=== PATIENT | female | born 1945 | race Two or more races ===

== ENCOUNTER 2018-12-06 10:47 | Day surgery (SDC) | payer MEDICARE, OTHER ==
[~2018-12-06] VITALS: Ht 147.3 cm; Wt 101.0 kg
[~2018-12-06 10:47] MED LIST: ROCURONIUM 10MG/ML,5ML ONE; SUCCINYLCHOLINE 20 MG/ML, 10ML ONE
[2018-12-06 11:19] VITALS: BP 189/81
[2018-12-06] MEDS ORDERED: LACTATED RINGERS 1,000 ML IV SCH (11:23)
[2018-12-06] MEDS ORDERED: PLEASE ENTER HEIGHT AND WEIGHT MC SCH (12:00)
[2018-12-06] MEDS ORDERED: ROSU40TA PO (12:33)
[2018-12-06] MEDS ORDERED: crestor (12:33)
[2018-12-06] MEDS ORDERED: PARO20TA4 PO (12:33)
[2018-12-06] MEDS ORDERED: DULO20CA45 PO (12:33)
[2018-12-06] MEDS ORDERED: mirtazapine (12:33)
[2018-12-06] MEDS ORDERED: LOSA25TA25 PO (12:33)
[2018-12-06] MEDS ORDERED: biotin (12:33)
[2018-12-06] MEDS ORDERED: MIRT15TA4 PO (12:33)
[2018-12-06] MEDS ORDERED: iron (12:33)
[2018-12-06] MEDS ORDERED: tikosyn (12:33)
[2018-12-06] MEDS ORDERED: DOFE500C4 PO (12:33)
[2018-12-06] MEDS ORDERED: HYDR-3240 PO (12:34)
[2018-12-06 12:50] LABS: BASOPHILS # (AUTO) 0.05 x10^3/uL (0-0.1); BASOPHILS % (AUTO) 1 % (0-1); EOSINOPHILS # (AUTO) 0.27 x10^3/uL (0-0.4); EOSINOPHILS % (AUTO) 3 % (1-7); LYMPHOCYTES # (AUTO) 2.28 x10^3/uL (1-3.4); LYMPHOCYTES % (AUTO) 23 % (22-44); MD NO; MEAN CORPUSCULAR HEMOGLOBIN 24.7 pg (27.0-34.8); MEAN CORPUSCULAR HGB CONC 31.2 g/dL (32.4-35.8); MEAN PLATELET VOLUME 9.8 fL (7.4-10.4); MONOCYTES # (AUTO) 0.48 x10^3/uL (0.2-0.8); MONOCYTES % (AUTO) 5 % (2-9); NEUTROPHILS # (AUTO) 6.96 x10^3/uL (1.8-6.8); NEUTROPHILS % (AUTO) 69 % (42-75); PLATELET COUNT 331 x10^3/uL (130-400); RED BLOOD COUNT 5.75 x10^6/uL (3.82-5.3); RED CELL DISTRIBUTION WIDTH 16.4 % (9.6-15.2)
[2018-12-06 13:02] LABS: ALBUMIN 3.5 g/dL (3.4-5.0); ANION GAP 6 mmol/L (5-15); CALCIUM 9.4 mg/dL (8.5-10.1); CHLORIDE 108 mmol/L (98-107)
[2018-12-06 13:05] LABS: ALANINE AMINOTRANSFERASE 20 U/L (12-78); ALKALINE PHOSPHATASE 88 U/L (45-117); BILIRUBIN,TOTAL 0.5 mg/dL (0.2-1.0); CREATININE 0.76 mg/dL (0.55-1.02)
[2018-12-06] MEDS ORDERED: EPINEPHRINE SYRINGE 0.1 MG/ML, 10ML ONE (13:07)
[2018-12-06] MEDS ORDERED: METHYLENE BLUE 50 MG/10 ML AMP ONE (13:14)
[2018-12-06] MEDS ORDERED: FENTANYL PF 100 MCG/2ML ONE (14:25)
[2018-12-06] MEDS ORDERED: PROPOFOL 10 MG/ML, 20ML ONE (15:28)
[2018-12-06] MEDS ORDERED: DEXAMETHASONE 4 MG/ML, 1ML ONE (15:28)
[2018-12-06] MEDS ORDERED: ONDANSETRON 2MG/ML, 2ML ONE (15:28)
== END 2018-12-06 16:45 | disposition home or self-care (01) ==
LOC: OUT 10:47
PROVIDERS: ATTEND Internal Medicine Geriatric Medicine
DX: K31.7 Polyp of stomach and duodenum (principal); K21.9 Gastro-esophageal reflux disease without esophagitis; I10 Essential (primary) hypertension; E78.5 Hyperlipidemia, unspecified; E66.01 Morbid (severe) obesity due to excess calories; Z68.42 Body mass index [BMI] 45.0-49.9, adult; Z88.0 Allergy status to penicillin
CPT/HCPCS: 36415; 43251; 80053; 85025; 88305; 93005; J0330; J1100; J2405; J2704; J3010; Q9968

== ENCOUNTER → 2019-01-26 | Outpatient (CLI) | payer MEDICARE, OTHER ==
[~2019-01-26] MED LIST changes: +DEXAMETHASONE 4 MG/ML, 1ML ONE; +DOFE500C4 PO; +DULO20CA45 PO; +FENTANYL PF 250 MCG/5ML ONE; +GLUC15006 PO; +GLYCOPYRROLATE 0.2MG/1ML, 5ML ONE; +HYDR-3240 PO; +LOSA25TA25 PO; +MIDAZOLAM 1 MG/ML, 2ML ONE; +MIRT15TA4 PO; +PARO20TA4 PO; +PROPOFOL 10 MG/ML, 20ML ONE; +ROSU40TA PO; -SUCCINYLCHOLINE 20 MG/ML, 10ML ONE; +TURMERIC; +VITAMIN D3; +biotin; +crestor; +iron; +mirtazapine; +tikosyn
== END | disposition home or self-care (01) ==
LOC: STAR 12:21
PROVIDERS: ATTEND Internal Medicine Geriatric Medicine
DX: Z02.9 Encounter for administrative examinations, unspecified (principal)

== ENCOUNTER 2019-01-31 06:29 | Day surgery (SDC) | payer MEDICARE, OTHER ==
[2019-01-26 13:38] VITALS: BP 182/64
[~2019-01-31] VITALS: Ht 147.3 cm; Wt 104.8 kg
[~2019-01-31 06:29] MED LIST changes: -DEXAMETHASONE 4 MG/ML, 1ML ONE; -FENTANYL PF 250 MCG/5ML ONE; -GLYCOPYRROLATE 0.2MG/1ML, 5ML ONE; -MIDAZOLAM 1 MG/ML, 2ML ONE; -PROPOFOL 10 MG/ML, 20ML ONE; -ROCURONIUM 10MG/ML,5ML ONE
[2019-01-31] MEDS ORDERED: LACTATED RINGERS 1,000 ML IV SCH (06:58)
[2019-01-31 07:03] VITALS: BP 182/64
[2019-01-31] MEDS ORDERED: LABETALOL 5MG/ML, 20ML IV PRN (07:30)
[2019-01-31] MEDS ORDERED: FENTANYL PF 100 MCG/2ML IV PRN (07:30)
[2019-01-31] MEDS ORDERED: MIDAZOLAM 1 MG/ML, 2ML IV PRN (07:30)
[2019-01-31] MEDS ORDERED: KETOROLAC 30 MG/1 ML IV PRN (07:30)
[2019-01-31] MEDS ORDERED: HYDROcodone/APAP 7.5-325MG/15ML UDC PO PRN (07:30)
[2019-01-31] MEDS ORDERED: METOCLOPRAMIDE 5 MG/ML, 2ML IV PRN (07:30)
[2019-01-31] MEDS ORDERED: OXYcodone 5 MG/5 ML ORAL.SOL UDC PO PRN (07:30)
[2019-01-31] MEDS ORDERED: ONDANSETRON 2MG/ML, 2ML IVPush PRN (07:30)
[2019-01-31] MEDS ORDERED: MEPERIDINE/PF 25MG/0.5ML IVPush PRN (07:30)
[2019-01-31] MEDS ORDERED: HYDROmorphone 1 MG/ML, 1ML INJ IV PRN (07:30)
[2019-01-31] MEDS ORDERED: METOPROLOL 1 MG/ML, 5ML ONE ×2 (08:57→15:04)
[2019-01-31] MEDS ORDERED: GLYCOPYRROLATE 0.2MG/1ML, 5ML ONE (15:04)
[2019-01-31] MEDS ORDERED: ROCURONIUM 10MG/ML,5ML ONE (15:04)
[2019-01-31] MEDS ORDERED: DEXAMETHASONE 4 MG/ML, 1ML ONE (15:04)
== END 2019-01-31 10:44 | disposition home or self-care (01) ==
LOC: OR 06:29
PROVIDERS: ATTEND Internal Medicine Geriatric Medicine
DX: K31.7 Polyp of stomach and duodenum (principal); I48.91 Unspecified atrial fibrillation; I10 Essential (primary) hypertension; E66.9 Obesity, unspecified; Z68.42 Body mass index [BMI] 45.0-49.9, adult; Z88.0 Allergy status to penicillin; Z88.8 Allergy status to other drugs, medicaments and biological substances
CPT/HCPCS: 43251; 88305; J1100; J2250; J2704; J3010; J7120